=== PATIENT | male | born 1970 | race Caucasian/White ===

== ENCOUNTER 2020-06-30 09:42 | Outpatient (CLI) | payer OTHER, SELFPAY ==
[2020-06-30 11:15] LABS: SARS-CoV-2 RNA PCR Negative (Negative)
== END 2020-06-30 09:43 | disposition home or self-care (01) ==
LOC: CHSLAB 09:52
PROVIDERS: PCP Pediatrics; Visit Provider Pediatrics
DX: Z20.822 Contact with and (suspected) exposure to COVID-19 (principal)
CPT/HCPCS: C9803; U0003; U0005